=== PATIENT | female | born 1930 | race African-American/Black ===

== ENCOUNTER 2017-12-16 11:06 | Inpatient (IN) ==
[2017-12-16] MEDS ORDERED: FUROSEMIDE 100 MG/10 ML VIAL IV STA (11:26)
[2017-12-16] MEDS ORDERED: methylPREDNISolone SOD SUC 125 MG/2 ML VIAL IV STA (11:26)
[2017-12-16] MEDS ORDERED: ONDANSETRON 4 MG/2 ML VIAL IV STA (11:26)
[2017-12-16] MEDS ORDERED: LEVOFLOXACIN INJ 750 MG in PREMIX 1 EACH IV STA (11:26)
[2017-12-16] MEDS ORDERED: ALBUTEROL 2.5 MG/3 ML NEB RESP TX SCH (11:30)
[2017-12-16 12:32] LABS: Basophils # 0.1 10*3/uL (0.0-0.2); Basophils % 0.8 % (0.0-0.8); Eosinophils # 0.5 10*3/uL (0.0-0.87); Eosinophils % 5.3 % (0.00-10.9); Hematocrit 29.6 VOL% (35.7-47.0); Hemoglobin 9.5 GM/DL (12.0-16.0); Immature Granulocytes % 0.4 %; Immature Granulocytes Absolute 0.04 #; Lymphocytes # 2.1 10*3/uL (1.4-4.0); Lymphocytes % 22.7 % (21.3-54.2); Mean Corpuscular HGB Conc 32.1 GM/DL (32-36); Mean Corpuscular Hemoglobin 29 PG (27-34); Mean Corpuscular Volume 91.1 FL (87-102); Mean Platelet Volume 11.5 FL (9.6-12.0); Monocytes # 0.9 10*3/uL (0.11-0.8); Monocytes % 10.2 % (1.7-12.7); Neutrophils # 5.6 10*3/uL (1.4-7.4); Neutrophils % 60.6 % (38.7-73.9); Platelet Count 250 T/CUMM (130-400); Red Blood Count 3.25 MC/CUMM (3.8-5.5); Red Cell Distribution Width 15.9 % (9.3-17.3); White Blood Count 9.2 T/CUMM (4-12)
[2017-12-16 12:44] LABS: INR 1.2; PT Patient Result 12.7 SECS; Partial Thromboplastin Time 39.1 SECS (0-40)
[2017-12-16] MEDS ORDERED: methylPREDNISolone SOD SUC 125 MG/2 ML VIAL ONE (12:45)
[2017-12-16] MEDS ORDERED: ONDANSETRON 4 MG/2 ML VIAL ONE (12:45)
[2017-12-16] MEDS ORDERED: FUROSEMIDE 100 MG/10 ML VIAL ONE (12:45)
[2017-12-16] MEDS ORDERED: LEVOFLOXACIN INJ 150 ML IV ONE (12:45)
[2017-12-16] MEDS ORDERED: METOPROLOL TARTRATE 5 MG/5 ML VIAL IV STA (13:06)
[2017-12-16] MEDS ORDERED: METOPROLOL TARTRATE 5 MG/5 ML VIAL IV ONE (13:06)
[2017-12-16 13:16] LABS: Alanine Aminotransferase 13 U/L (13-56); Albumin 2.9 G/DL (3.4-5.0); Alkaline Phosphatase 114 U/L (45-117); Aspartate Amino Transferase 17 U/L (0-37); Blood Urea Nitrogen 24 MG/DL (7-18); Calcium 9.4 MG/DL (8.5-10.1); Glucose 134 MG/DL (74-106); Osmolality,Calculated 282.5 MOS/KG (273-304); Sodium 139 MMOL/L (136-145); Total Protein 7.3 G/DL (6.4-8.3); Troponin I Only < 0.015 NG/ML (0.00-0.045)
[2017-12-16] MEDS ORDERED: ONDANSETRON 4 MG/2 ML VIAL IV PRN (15:20)
[2017-12-16] MEDS ORDERED: diphenhydrAMINE CAP 25 MG CAPSULE PO PRN (15:20)
[2017-12-16] MEDS ORDERED: ACETAMINOPHEN 325 MG TABLET PO PRN (15:20)
[2017-12-16] MEDS ORDERED: POLYVINYL ALCOHOL 1.4% OPH SOLN 15 ML BOTTLE BOTH EYES PRN (16:59)
[2017-12-16 17:08] LABS: ABG Base Excess 1.1 MMOL/L (-2.5-2.5); ABG HCO3 25.2 MMOL/L (20-26); ABG Oxygen Saturation 85.1 % (95-100); ABG PCO2 46.1 MM HG (35-48); ABG PH 7.371 (7.35-7.45); ABG PO2 53.4 MM HG (80-95); ABG TCO2 24.7 MMOL/L (23-27); Allen Test Positive
[2017-12-16] MEDS: cefTRIAXone 2,000 MG in SODIUM CHLORIDE 0.9% 100 ML IV SCH (18:25)
[2017-12-16] MEDS: FUROSEMIDE 40 MG TABLET PO SCH (18:25)
[2017-12-16] MEDS: SIMVASTATIN 20 MG TABLET PO SCH (20:59)
[2017-12-16] MEDS: APIXABAN 5 MG TABLET PO SCH (20:59)
[2017-12-16] MEDS ORDERED: ENOXAPARIN 40 MG/0.4 ML SYRINGE SUBCUT SCH (21:00)
[2017-12-16] MEDS: TELMISARTAN 80 MG PO SCH (22:36)
[2017-12-16 23:28] LABS: Apearance,Urine CLEAR (Clear); Bilirubin,Urine Negative (Negative); Blood, Urine Negative (Negative); Glucose,Urine (UA) Negative (Negative); Hyaline Casts,Urine 12 /LPF (0-3); Ketones,Urine Negative (Negative); Nitrite,Urine Negative (Negative); Protein,Urine Negative; RBC,Urine <1 /HPF (0-4); Urine Color Straw (Yellow); Urine Specific Gravity 1.014 (1.001-1.035); Urine Urobilinogen < 2.0 EU/DL (0.2-1.0); WBC,Urine <1 /HPF (0-6)
[2017-12-17 06:25] LABS: Basophils % 0.1 % (0.0-0.8); Hematocrit 25.5 VOL% (35.7-47.0); Hemoglobin 8.1 GM/DL (12.0-16.0); Immature Granulocytes % 0.6 %; Immature Granulocytes Absolute 0.05 #; Lymphocytes # 0.6 10*3/uL (1.4-4.0); Lymphocytes % 6.6 % (21.3-54.2); Mean Corpuscular HGB Conc 31.8 GM/DL (32-36); Mean Corpuscular Hemoglobin 29 PG (27-34); Mean Corpuscular Volume 90.7 FL (87-102); Mean Platelet Volume 11.9 FL (9.6-12.0); Monocytes # 0.6 10*3/uL (0.11-0.8); Monocytes % 6.4 % (1.7-12.7); Neutrophils # 7.6 10*3/uL (1.4-7.4); Neutrophils % 86.3 % (38.7-73.9); Platelet Count 255 T/CUMM (130-400); Red Blood Count 2.81 MC/CUMM (3.8-5.5); Red Cell Distribution Width 15.7 % (9.3-17.3); White Blood Count 8.9 T/CUMM (4-12)
[2017-12-17 06:52] LABS: Albumin 2.6 G/DL (3.4-5.0); Bilirubin,Total 0.8 MG/DL (0.2-1.0); Calcium 9.3 MG/DL (8.5-10.1); Osmolality,Calculated 289.1 MOS/KG (273-304); Potassium 4.6 MMOL/L (3.5-5.1)
[2017-12-17] MEDS: FUROSEMIDE 40 MG TABLET PO SCH ×2 (09:01→16:34)
[2017-12-17] MEDS: PANTOPRAZOLE 40 MG TABLET PO SCH (09:01)
[2017-12-17] MEDS: ALLOPURINOL 300 MG TABLET PO SCH (09:01)
[2017-12-17] MEDS: POTASSIUM CHLORIDE 10 MEQ TABLET PO SCH (09:01)
[2017-12-17] MEDS: guaiFENesin/DM ER 600-30 MG TABLET PO PRN (09:01)
[2017-12-17] MEDS: APIXABAN 5 MG TABLET PO SCH ×2 (09:01→20:52)
[2017-12-17] MEDS: amLODIPine 5 MG TABLET PO SCH (09:01)
[2017-12-17] MEDS ORDERED: GLUCAGON 1 MG VIAL IM PRN (10:12)
[2017-12-17] MEDS ORDERED: DEXTROSE 50% 25 GM/50 ML VIAL IV PRN (10:12)
[2017-12-17] MEDS ORDERED: ALBUTEROL/IPRATROPIUM 3 ML NEB RESP TX SCH (11:00)
[2017-12-17] MEDS: ALBUTEROL/IPRATROPIUM 3 ML NEB RESP TX SCH ×3 (11:18→19:35)
[2017-12-17 11:20] LABS: Hematocrit 26.1 VOL% (35.7-47.0); Hemoglobin 8.2 GM/DL (12.0-16.0); Immature Granulocytes % 0.9 %; Immature Granulocytes Absolute 0.09 #; Lymphocytes # 0.7 10*3/uL (1.4-4.0); Mean Corpuscular HGB Conc 31.4 GM/DL (32-36); Mean Corpuscular Hemoglobin 29 PG (27-34); Mean Corpuscular Volume 92.6 FL (87-102); Mean Platelet Volume 11.6 FL (9.6-12.0); Monocytes # 0.9 10*3/uL (0.11-0.8); Monocytes % 8.9 % (1.7-12.7); Neutrophils # 8.8 10*3/uL (1.4-7.4); Neutrophils % 83.2 % (38.7-73.9); Platelet Count 249 T/CUMM (130-400); Red Blood Count 2.82 MC/CUMM (3.8-5.5); Red Cell Distribution Width 15.9 % (9.3-17.3); White Blood Count 10.5 T/CUMM (4-12)
[2017-12-17] MEDS: LEVOFLOXACIN INJ 750 MG in PREMIX 1 EACH IV SCH (11:35)
[2017-12-17 12:09] LABS: Free T4 (Free Thyroxine) 1.17 NG/DL (0.76-1.46); Thyroid Stimulating Hormone 1.11 uIU/ml (0.358-3.74); Uric Acid 3.9 MG/DL (2.6-6.0)
[2017-12-17 12:23] LABS: Sedimentation Rate-Westergren 109 MM/HR (0-30)
[2017-12-17] MEDS: INSULIN LISPRO 100 UNIT/ML SUBCUT SCH ×3 (12:24→20:52)
[2017-12-17 12:41] LABS: Folate 5.7 NG/ML (5.4-24.0); Vitamin B12 513 PG/ML (211-911)
[2017-12-17 12:48] LABS: % Iron Saturation 11.3 % (18-50)
[2017-12-17 13:11] LABS: Folate 5.6 NG/ML (5.4-24.0)
[2017-12-17] MEDS: cefTRIAXone 2,000 MG in SODIUM CHLORIDE 0.9% 100 ML IV SCH (18:03)
[2017-12-17] MEDS ORDERED: DOCUSATE SODIUM 100 MG/10 ML UDCUP PO ONE (20:30)
[2017-12-17] MEDS: TELMISARTAN 80 MG PO SCH (20:51)
[2017-12-17] MEDS: SIMVASTATIN 20 MG TABLET PO SCH (20:52)
[2017-12-18 05:28] LABS: Basophils % 0.1 % (0.0-0.8); Eosinophils # 0.1 10*3/uL (0.0-0.87); Eosinophils % 0.8 % (0.00-10.9); Hemoglobin 8.4 GM/DL (12.0-16.0); Immature Granulocytes % 0.3 %; Immature Granulocytes Absolute 0.03 #; Lymphocytes # 1.8 10*3/uL (1.4-4.0); Lymphocytes % 17.6 % (21.3-54.2); Mean Corpuscular HGB Conc 32.3 GM/DL (32-36); Mean Corpuscular Hemoglobin 29 PG (27-34); Mean Corpuscular Volume 90.3 FL (87-102); Mean Platelet Volume 12.2 FL (9.6-12.0); Monocytes # 1.3 10*3/uL (0.11-0.8); Monocytes % 12.7 % (1.7-12.7); Neutrophils # 7.1 10*3/uL (1.4-7.4); Neutrophils % 68.5 % (38.7-73.9); Platelet Count 279 T/CUMM (130-400); Red Blood Count 2.88 MC/CUMM (3.8-5.5); Red Cell Distribution Width 16.2 % (9.3-17.3); White Blood Count 10.3 T/CUMM (4-12)
[2017-12-18] MEDS: ALBUTEROL/IPRATROPIUM 3 ML NEB RESP TX SCH ×4 (07:29→20:30)
[2017-12-18] MEDS: FUROSEMIDE 40 MG TABLET PO SCH ×2 (09:13→17:01)
[2017-12-18] MEDS: amLODIPine 5 MG TABLET PO SCH (09:13)
[2017-12-18] MEDS: DOCUSATE SODIUM 100 MG CAPSULE PO PRN (09:13)
[2017-12-18] MEDS: POTASSIUM CHLORIDE 10 MEQ TABLET PO SCH (09:13)
[2017-12-18] MEDS: APIXABAN 5 MG TABLET PO SCH ×2 (09:13→21:30)
[2017-12-18] MEDS: ALLOPURINOL 300 MG TABLET PO SCH (09:13)
[2017-12-18] MEDS: MAGNESIUM HYDROXIDE SUSP 30 ML UDCUP PO PRN (09:14)
[2017-12-18] MEDS: PANTOPRAZOLE 40 MG TABLET PO SCH (09:14)
[2017-12-18] MEDS: INSULIN LISPRO 100 UNIT/ML SUBCUT SCH ×4 (10:06→21:29)
[2017-12-18] MEDS: LEVOFLOXACIN INJ 750 MG in PREMIX 1 EACH IV SCH (11:39)
[2017-12-18] MEDS: cefTRIAXone 2,000 MG in SODIUM CHLORIDE 0.9% 100 ML IV SCH (17:38)
[2017-12-18] MEDS: SIMVASTATIN 20 MG TABLET PO SCH (21:30)
[2017-12-18] MEDS: TELMISARTAN 80 MG PO SCH (21:31)
[2017-12-19 05:30] LABS: Basophils % 0.4 % (0.0-0.8); Eosinophils # 0.3 10*3/uL (0.0-0.87); Eosinophils % 3.2 % (0.00-10.9); Hematocrit 25.9 VOL% (35.7-47.0); Hemoglobin 8.6 GM/DL (12.0-16.0); Immature Granulocytes % 0.6 %; Immature Granulocytes Absolute 0.06 #; Lymphocytes % 19.1 % (21.3-54.2); Mean Corpuscular HGB Conc 33.2 GM/DL (32-36); Mean Corpuscular Hemoglobin 30 PG (27-34); Mean Corpuscular Volume 88.7 FL (87-102); Monocytes # 1.3 10*3/uL (0.11-0.8); Monocytes % 12.1 % (1.7-12.7); NRBC # 0.02 10*3/uL; Neutrophils # 6.9 10*3/uL (1.4-7.4); Neutrophils % 64.6 % (38.7-73.9); Platelet Count 286 T/CUMM (130-400); Red Blood Count 2.92 MC/CUMM (3.8-5.5); Red Cell Distribution Width 16.1 % (9.3-17.3); White Blood Count 10.6 T/CUMM (4-12)
[2017-12-19 06:02] LABS: Calcium 8.7 MG/DL (8.5-10.1); Osmolality,Calculated 285.4 MOS/KG (273-304); Potassium 4.5 MMOL/L (3.5-5.1)
[2017-12-19] MEDS: ALBUTEROL/IPRATROPIUM 3 ML NEB RESP TX SCH ×4 (07:13→20:37)
[2017-12-19] MEDS: POTASSIUM CHLORIDE 10 MEQ TABLET PO SCH (10:15)
[2017-12-19] MEDS: ALLOPURINOL 300 MG TABLET PO SCH (10:15)
[2017-12-19] MEDS: guaiFENesin/DM ER 600-30 MG TABLET PO PRN (10:15)
[2017-12-19] MEDS: amLODIPine 5 MG TABLET PO SCH (10:16)
[2017-12-19] MEDS: APIXABAN 5 MG TABLET PO SCH ×2 (10:16→21:15)
[2017-12-19] MEDS: FUROSEMIDE 40 MG TABLET PO SCH ×2 (10:16→15:24)
[2017-12-19] MEDS: DOCUSATE SODIUM 100 MG CAPSULE PO PRN (10:17)
[2017-12-19] MEDS: PANTOPRAZOLE 40 MG TABLET PO SCH (10:17)
[2017-12-19] MEDS: MAGNESIUM HYDROXIDE SUSP 30 ML UDCUP PO PRN (10:18)
[2017-12-19] MEDS: INSULIN LISPRO 100 UNIT/ML SUBCUT SCH ×4 (10:19→22:31)
[2017-12-19] MEDS: LEVOFLOXACIN INJ 750 MG in PREMIX 1 EACH IV SCH (10:33)
[2017-12-19 13:08] LABS: Hemoglobin A1 (Alkaline) 97.5 % (96.5-98.5); Hemoglobin A2 (Alkaline) 2.5 % (1.5-3.5)
[2017-12-19] MEDS: cefTRIAXone 2,000 MG in SODIUM CHLORIDE 0.9% 100 ML IV SCH (18:29)
[2017-12-19] MEDS: TELMISARTAN 80 MG PO SCH (21:16)
[2017-12-19] MEDS: SIMVASTATIN 20 MG TABLET PO SCH (21:16)
[2017-12-20] MEDS: ALBUTEROL/IPRATROPIUM 3 ML NEB RESP TX SCH ×4 (07:11→19:25)
[2017-12-20 07:17] LABS: Basophils % 0.2 % (0.0-0.8); Eosinophils # 0.1 10*3/uL (0.0-0.87); Eosinophils % 1.1 % (0.00-10.9); Hematocrit 26.3 VOL% (35.7-47.0); Hemoglobin 8.3 GM/DL (12.0-16.0); Immature Granulocytes % 0.4 %; Immature Granulocytes Absolute 0.04 #; Lymphocytes # 1.2 10*3/uL (1.4-4.0); Mean Corpuscular HGB Conc 31.6 GM/DL (32-36); Mean Corpuscular Hemoglobin 29 PG (27-34); Mean Corpuscular Volume 90.4 FL (87-102); Mean Platelet Volume 11.2 FL (9.6-12.0); Monocytes # 1.2 10*3/uL (0.11-0.8); Neutrophils # 8.6 10*3/uL (1.4-7.4); Neutrophils % 76.3 % (38.7-73.9); Platelet Count 275 T/CUMM (130-400); Red Blood Count 2.91 MC/CUMM (3.8-5.5); Red Cell Distribution Width 16.1 % (9.3-17.3); White Blood Count 11.2 T/CUMM (4-12)
[2017-12-20 07:43] LABS: Calcium 9.1 MG/DL (8.5-10.1); Osmolality,Calculated 285.4 MOS/KG (273-304); Potassium 4.2 MMOL/L (3.5-5.1)
[2017-12-20 08:06] LABS: Risk Ratio 2.48; VLDL CHOLESTEROL 13.6 MG/DL
[2017-12-20] MEDS: guaiFENesin/DM ER 600-30 MG TABLET PO PRN (08:58)
[2017-12-20] MEDS: APIXABAN 5 MG TABLET PO SCH ×2 (08:58→21:56)
[2017-12-20] MEDS: amLODIPine 5 MG TABLET PO SCH (08:58)
[2017-12-20] MEDS: FUROSEMIDE 40 MG TABLET PO SCH ×2 (08:58→17:21)
[2017-12-20] MEDS: POTASSIUM CHLORIDE 10 MEQ TABLET PO SCH (08:58)
[2017-12-20] MEDS: PANTOPRAZOLE 40 MG TABLET PO SCH (08:58)
[2017-12-20] MEDS: ALLOPURINOL 300 MG TABLET PO SCH (08:58)
[2017-12-20] MEDS: INSULIN LISPRO 100 UNIT/ML SUBCUT SCH ×4 (08:59→22:03)
[2017-12-20] MEDS: LEVOFLOXACIN INJ 750 MG in PREMIX 1 EACH IV SCH (11:36)
[2017-12-20] MEDS ORDERED: cefTRIAXone 2,000 MG in SYRINGE 1 EACH IV SCH (18:30)
[2017-12-20] MEDS: TELMISARTAN 80 MG PO SCH (21:56)
[2017-12-20] MEDS: SIMVASTATIN 20 MG TABLET PO SCH (21:56)
[2017-12-21 06:31] LABS: Basophils % 0.2 % (0.0-0.8); Eosinophils # 0.2 10*3/uL (0.0-0.87); Eosinophils % 1.4 % (0.00-10.9); Hematocrit 25.6 VOL% (35.7-47.0); Hemoglobin 8.2 GM/DL (12.0-16.0); Immature Granulocytes % 0.4 %; Immature Granulocytes Absolute 0.05 #; Lymphocytes % 16.6 % (21.3-54.2); Mean Corpuscular Hemoglobin 29 PG (27-34); Mean Corpuscular Volume 90.5 FL (87-102); Mean Platelet Volume 11.6 FL (9.6-12.0); Monocytes # 1.2 10*3/uL (0.11-0.8); Neutrophils # 8.4 10*3/uL (1.4-7.4); Neutrophils % 71.4 % (38.7-73.9); Platelet Count 282 T/CUMM (130-400); Red Blood Count 2.83 MC/CUMM (3.8-5.5); Red Cell Distribution Width 16.4 % (9.3-17.3); White Blood Count 11.8 T/CUMM (4-12)
[2017-12-21 07:14] LABS: Osmolality,Calculated 285.3 MOS/KG (273-304)
[2017-12-21] MEDS: ALBUTEROL/IPRATROPIUM 3 ML NEB RESP TX SCH ×4 (07:38→19:32)
[2017-12-21] MEDS: INSULIN LISPRO 100 UNIT/ML SUBCUT SCH ×4 (08:05→21:28)
[2017-12-21] MEDS: APIXABAN 5 MG TABLET PO SCH ×2 (09:06→21:37)
[2017-12-21] MEDS: POTASSIUM CHLORIDE 10 MEQ TABLET PO SCH (09:06)
[2017-12-21] MEDS: amLODIPine 5 MG TABLET PO SCH (09:06)
[2017-12-21] MEDS: FUROSEMIDE 40 MG TABLET PO SCH ×2 (09:06→19:16)
[2017-12-21] MEDS: PANTOPRAZOLE 40 MG TABLET PO SCH (09:06)
[2017-12-21] MEDS: ALLOPURINOL 300 MG TABLET PO SCH (09:06)
[2017-12-21] MEDS: FLUCONAZOLE 100 MG TABLET PO SCH (13:05)
[2017-12-21] MEDS: LEVOFLOXACIN INJ 750 MG in PREMIX 1 EACH IV SCH (13:06)
[2017-12-21] MEDS: SIMVASTATIN 20 MG TABLET PO SCH (21:33)
[2017-12-21] MEDS: TELMISARTAN 80 MG PO SCH (21:34)
[2017-12-22 05:35] LABS: Basophils % 0.2 % (0.0-0.8); Eosinophils # 0.3 10*3/uL (0.0-0.87); Eosinophils % 2.1 % (0.00-10.9); Hematocrit 26.1 VOL% (35.7-47.0); Hemoglobin 8.2 GM/DL (12.0-16.0); Immature Granulocytes % 0.6 %; Immature Granulocytes Absolute 0.07 #; Lymphocytes # 2.1 10*3/uL (1.4-4.0); Lymphocytes % 17.5 % (21.3-54.2); Mean Corpuscular HGB Conc 31.4 GM/DL (32-36); Mean Corpuscular Hemoglobin 29 PG (27-34); Mean Corpuscular Volume 90.6 FL (87-102); Mean Platelet Volume 11.5 FL (9.6-12.0); Monocytes # 1.2 10*3/uL (0.11-0.8); Monocytes % 9.9 % (1.7-12.7); Neutrophils # 8.4 10*3/uL (1.4-7.4); Neutrophils % 69.7 % (38.7-73.9); Platelet Count 296 T/CUMM (130-400); Red Blood Count 2.88 MC/CUMM (3.8-5.5); Red Cell Distribution Width 16.4 % (9.3-17.3); White Blood Count 12.1 T/CUMM (4-12)
[2017-12-22 05:55] LABS: Calcium 8.9 MG/DL (8.5-10.1); Osmolality,Calculated 280.5 MOS/KG (273-304); Potassium 3.8 MMOL/L (3.5-5.1)
[2017-12-22] MEDS ORDERED: LEVOFLOXACIN 750 MG TABLET PO SCH (09:00)
[2017-12-22] MEDS: INSULIN LISPRO 100 UNIT/ML SUBCUT SCH ×2 (10:42→12:32)
[2017-12-22] MEDS: PANTOPRAZOLE 40 MG TABLET PO SCH (10:55)
[2017-12-22] MEDS: ALLOPURINOL 300 MG TABLET PO SCH (10:55)
[2017-12-22] MEDS: FUROSEMIDE 40 MG TABLET PO SCH (10:55)
[2017-12-22] MEDS: FLUCONAZOLE 100 MG TABLET PO SCH (10:55)
[2017-12-22] MEDS: amLODIPine 5 MG TABLET PO SCH (10:55)
[2017-12-22] MEDS: APIXABAN 5 MG TABLET PO SCH (10:55)
[2017-12-22] MEDS: POTASSIUM CHLORIDE 10 MEQ TABLET PO SCH (10:56)
[2017-12-22 12:21] VITALS: BP 115/71
[2017-12-29 10:34] LABS: QuantiFERON-Tb Gold Pl Negative (Negative); TB1 Ag minus Nil Result 0
== END 2017-12-22 13:32 | disposition home health service (06) | DRG 166 ==
LOC: N.ED 11:06 → SUATTDRO 14:47 → N.EDINP 14:47 → N.2E 17:25
PROVIDERS: ADMIT Internal Medicine Infectious Disease; ATTEND Internal Medicine